=== PATIENT | female | born 1990 | race Caucasian/White ===

== ENCOUNTER → 2017-01-14 | Outpatient (CLI) | payer OTHER ==
[2017-01-14 12:35] LABS: BASO % 1 % (0-3); EOS % 1 % (0-3); HEMATOCRIT 40.2 % (36.0-47.0); HEMOGLOBIN 13.7 g/dL (12.0-15.5); LYMPH # 2.6 x10^3/uL (1.0-4.8); LYMPH % 36 % (24-48); MEAN CORPUSCULAR HEMOGLOBIN 30 pg (25-35); MEAN CORPUSCULAR HGB CONC 34 g/dL (31-37); MEAN CORPUSCULAR VOLUME 89 fL (79-100); MONO % 8 % (0-9); NEUT % 54 % (31-73); PLATELET COUNT 278 x10^3/uL (140-400); RED BLOOD COUNT 4.51 x10^6/uL (3.50-5.40); RED CELL DISTRIBUTION WIDTH 12.4 % (11.5-14.5); WHITE BLOOD COUNT 7.3 x10^3/uL (4.0-11.0)
[2017-01-14 12:49] LABS: ALBUMIN/GLOBULIN RATIO 1.1 (1.0-1.7); CHOLESTEROL/HDL RATIO 2.8; CREATININE 0.8 mg/dL (0.6-1.0); GFR 86.7; POTASSIUM 4.2 mmol/L (3.5-5.1); TOTAL BILIRUBIN 0.9 mg/dL (0.2-1.0); TOTAL PROTEIN 7.8 g/dL (6.4-8.2)
--- NOTE | 2017-01-14 14:55 | RAD ---
Left hand, 3 views, 01/14/2017: History: Pain No fracture or dislocation is identified. No significant arthritic change is seen. The soft tissues are unremarkable. IMPRESSION: No significant abnormality is detected.
== END | disposition home or self-care (01) ==
LOC: RAD 12:05
PROVIDERS: ATTEND Nurse Practitioner
DX: M79.642 Pain in left hand (principal); R00.2 Palpitations; Z82.49 Family history of ischemic heart disease and other diseases of the circulatory system
CPT/HCPCS: 36415; 73130; 80053; 80061; 82306; 84443; 85027

== ENCOUNTER → 2017-03-10 | Outpatient (CLI) | payer OTHER | END | disposition home or self-care (01) | LOC: LAB 11:55 | DX: N91.2 Amenorrhea, unspecified (principal) | CPT/HCPCS: 36415; 84702 ==

== ENCOUNTER → 2017-03-12 | Outpatient (CLI) | payer OTHER | END | disposition home or self-care (01) | LOC: LAB 09:34 | DX: N91.0 Primary amenorrhea (principal) | CPT/HCPCS: 36415; 84144; 84702; 86901 ==

== ENCOUNTER → 2017-03-16 | Outpatient (CLI) | payer OTHER | END | disposition home or self-care (01) | LOC: LAB 10:50 | DX: Z34.81 Encounter for supervision of other normal pregnancy, first trimester (principal); Z3A.01 Less than 8 weeks gestation of pregnancy | CPT/HCPCS: 36415; 84702 ==

== ENCOUNTER → 2017-03-25 | Outpatient (CLI) | payer OTHER ==
--- NOTE | 2017-03-25 09:09 | RAD ---
Indication assess viability. An early obstetrical ultrasound examination was performed. Initially transabdominal scans were obtained. Initial transabdominal scans were supplemented with transvaginal scans. No quantitative hCG value is available. The uterus measures approximately 8 x 5.2 x 4.2 cm. Within the fundus of the uterus is a gestational sac and a yolk sac. No pole is yet seen. Sac size is compatible with a of approximately 6 weeks gestational age. The right ovary appears normal. There is a dominant physiologic cyst measuring approximately 1.7 cm associated with the left ovary. IMPRESSION: Early IUP of approximately 6 weeks gestation. No pole has developed. Cardiac activity is not seen likely a function of the early gestational age Dominant cyst associated with the left ovary
== END | disposition home or self-care (01) ==
LOC: US 07:35
DX: O34.81 Maternal care for other abnormalities of pelvic organs, first trimester (principal); N83.202 Unspecified ovarian cyst, left side; Z3A.01 Less than 8 weeks gestation of pregnancy
CPT/HCPCS: 36415; 76801; 76817; 84702

== ENCOUNTER → 2017-04-07 | Outpatient (CLI) | payer OTHER ==
--- NOTE | 2017-04-07 16:42 | RAD ---
Obstetrical ultrasound, 04/03/2014 2017: History: Early Transabdominal scans were obtained. The uterus is enlarged and contains a single gestational sac. The gestational sac contains a pole demonstrating a crown-rump length of 1 cm. This suggests a gestational age of 7 weeks and 1 day yielding a sonographic EDC of 11/23/2017. motion and cardiac activity are present. The heart rate is 149 bpm. There is no evidence of subchorionic hemorrhage. The ovaries are of normal size. No adnexal mass is seen. No free fluid is evident in the pelvis. IMPRESSION: Single viable intrauterine fetus of 7 weeks gestational age as described above.
== END | disposition home or self-care (01) ==
LOC: US 16:02
DX: O26.891 Other specified pregnancy related conditions, first trimester (principal); N91.0 Primary amenorrhea; Z3A.01 Less than 8 weeks gestation of pregnancy
CPT/HCPCS: 76801

== ENCOUNTER → 2017-04-28 | Outpatient (CLI) | payer OTHER ==
[2017-04-28 11:05] LABS: BASO % 1 % (0-3); EOS % 1 % (0-3); HEMATOCRIT 38.8 % (36.0-47.0); HEMOGLOBIN 13.6 g/dL (12.0-15.5); LYMPH % 25 % (24-48); MEAN CORPUSCULAR HEMOGLOBIN 32 pg (25-35); MEAN CORPUSCULAR HGB CONC 35 g/dL (31-37); MEAN CORPUSCULAR VOLUME 90 fL (79-100); MONO % 7 % (0-9); NEUT % 67 % (31-73); PLATELET COUNT 258 x10^3/uL (140-400); RED BLOOD COUNT 4.32 x10^6/uL (3.50-5.40); RED CELL DISTRIBUTION WIDTH 12.4 % (11.5-14.5)
[2017-04-28 22:15] LABS: HIV ANTIBODY Non Reactive (Non Reactive)
== END | disposition home or self-care (01) ==
LOC: LAB 10:32
PROVIDERS: ATTEND Obstetrics & Gynecology
DX: Z32.01 Encounter for pregnancy test, result positive (principal)
CPT/HCPCS: 36415; 85025; 86593; 86701; 86702; 86703; 86762; 86850; 86900; 86901; 87340; 87341; 87535

== ENCOUNTER → 2017-05-12 | Outpatient (CLI) | payer OTHER | END | disposition home or self-care (01) | LOC: LAB 11:09 | PROVIDERS: ATTEND Obstetrics & Gynecology | DX: Z34.81 Encounter for supervision of other normal pregnancy, first trimester (principal); Z3A.00 Weeks of gestation of pregnancy not specified | CPT/HCPCS: 36415 ==

== ENCOUNTER → 2017-06-23 | Outpatient (CLI) | payer OTHER | END | disposition home or self-care (01) | LOC: US 09:27 | DX: O09.92 Supervision of high risk pregnancy, unspecified, second trimester (principal); O32.1XX0 Maternal care for breech presentation, not applicable or unspecified; O26.842 Uterine size-date discrepancy, second trimester; Z3A.19 19 weeks gestation of pregnancy | CPT/HCPCS: 76805 ==

== ENCOUNTER → 2017-07-20 | Outpatient (CLI) | payer OTHER ==
[2017-07-23 07:54] LABS: T-SPOT TB TEST(OXFORD) SEE SEPARATE REPORT
== END | disposition home or self-care (01) ==
LOC: LAB 09:49
DX: Z11.1 Encounter for screening for respiratory tuberculosis (principal)
CPT/HCPCS: 36415; 86481

== ENCOUNTER → 2017-09-03 | Outpatient (CLI) | payer OTHER ==
[2017-09-03 12:40] LABS: TYPE AND SCREEN 1 1
== END | disposition home or self-care (01) ==
LOC: LAB 10:13
DX: O09.93 Supervision of high risk pregnancy, unspecified, third trimester (principal); Z3A.40 40 weeks gestation of pregnancy
CPT/HCPCS: 36415; 86850; 86900; 86901; 96372; J2791

== ENCOUNTER 2017-11-11 13:57 | Observation (INO) | payer OTHER | END 2017-11-11 16:34 | disposition home or self-care (01) | LOC: 3 SO LND 13:57 | DX: O62.9 Abnormality of forces of labor, unspecified (principal); Z3A.38 38 weeks gestation of pregnancy | CPT/HCPCS: G0378; G0379 ==

== ENCOUNTER 2017-11-15 06:18 | Inpatient (IN) | payer OTHER ==
[2017-11-15] MEDS ORDERED: IV RINGERS,LACTATED 1000ML 1,000 ML IV (06:38)
[2017-11-15] MEDS ORDERED: IBUPROFEN 800 MG TABLET. PO (06:45)
[2017-11-15] MEDS ORDERED: fentaNYL PF VIAL 100 MCG/2 ML VIAL IV (06:45)
[2017-11-15] MEDS ORDERED: BUTORPHANOL 2 MG/ML VIAL. IV (06:45)
[2017-11-15] MEDS ORDERED: TERBUTALINE 1 MG/ML VIAL. SQ (06:45)
[2017-11-15] MEDS ORDERED: 0.9 % SODIUM CHLORIDE 10 ML DISP.SYRIN. IV ×2 (06:45→08:45)
[2017-11-15] MEDS ORDERED: LIDOCAINE 1% PF 30 ML VIAL. INJ (06:45)
[2017-11-15] MEDS: IV RINGERS,LACTATED 1000ML 1,000 ML IV ×2 (06:50→11:05)
[2017-11-15] MEDS: OXYTOCIN 30 UNIT/500 ML PREMIX 500 ML IV ×2 (06:51→11:04)
[2017-11-15] MEDS: BUTORPHANOL 2 MG/ML VIAL. IV (06:52)
[2017-11-15 06:56] LABS: ADD MAN DIFF? NO
[2017-11-15 07:02] LABS: BASO % 0 % (0-3); EOS # 0.1 x10^3/uL (0.0-0.7); EOS % 1 % (0-3); HEMATOCRIT 36.9 % (36.0-47.0); HEMOGLOBIN 12.5 g/dL (12.0-15.5); LYMPH # 2.3 x10^3/uL (1.0-4.8); LYMPH % 25 % (24-48); MEAN CORPUSCULAR HEMOGLOBIN 29 pg (25-35); MEAN CORPUSCULAR HGB CONC 34 g/dL (31-37); MEAN CORPUSCULAR VOLUME 85 fL (79-100); MONO # 0.7 x10^3/uL (0.0-1.1); MONO % 8 % (0-9); NEUT # 6.1 x10^3uL (1.8-7.7); NEUT % 66 % (31-73); PLATELET COUNT 208 x10^3/uL (140-400); RED BLOOD COUNT 4.33 x10^6/uL (3.50-5.40); RED CELL DISTRIBUTION WIDTH 13.8 % (11.5-14.5); WHITE BLOOD COUNT 9.2 x10^3/uL (4.0-11.0)
[2017-11-15] MEDS ORDERED: ROPIVacaine 0.2% IN 0.9%NACL PF 40 MG/20 ML DISP.SYRIN. ×2 (07:32→08:00)
[2017-11-15] MEDS ORDERED: L&D EPIDURAL SYRINGE 50 ML EP ×2 (07:33→11:18)
[2017-11-15] MEDS ORDERED: L&D EPIDURAL 50 ML SYRINGE. EP ×2 (08:00→11:30)
[2017-11-15] MEDS ORDERED: HYDROCORTISONE 1% TOPICAL OINTMENT 30GM TUBE. TP (08:45)
[2017-11-15] MEDS ORDERED: diphenhydrAMINE HCL 25 MG CAPSULE PO (08:45)
[2017-11-15] MEDS ORDERED: SIMETHICONE 80 MG TAB.CHEW PO (08:45)
[2017-11-15] MEDS ORDERED: PHENYLEPH/MINERAL OIL/PETROLAT RECTAL OINTMENT 28GM TUBE. RC (08:45)
[2017-11-15] MEDS ORDERED: MAG HYDROX/ALUMINUM HYD/SIMETH 30 ML ORAL.SUSP PO (08:45)
[2017-11-15] MEDS ORDERED: MAGNESIUM HYDROXIDE 2,400 MG/30 ML ORAL.SUSP. PO (08:45)
[2017-11-15] MEDS: IBUPROFEN 800 MG TABLET. PO ×2 (13:55→22:01)
[2017-11-15] MEDS: BENZOCAINE 20% TOPICAL AEROSOL SPRAY 57GM CAN. TP (13:56)
[2017-11-15] MEDS: FERROUS SULFATE 325 MG TABLET. PO (17:00)
[2017-11-15] MEDS: ACETAMINOPHEN 325 MG TABLET. PO (20:25)
[2017-11-16] MEDS: IBUPROFEN 800 MG TABLET. PO ×2 (07:47→17:43)
[2017-11-16 08:27] LABS: HEMATOCRIT 33.2 % (36.0-47.0)
[2017-11-16] MEDS: oxyCODONE/APAP 5/325 1 TAB TABLET PO ×2 (10:14→20:55)
[2017-11-16] MEDS: ZOLPIDEM 5 MG TABLET. PO (20:54)
[2017-11-16] MEDS: DOCUSATE SODIUM 100 MG CAPSULE. PO (20:54)
[2017-11-17 07:41] LABS: RPR Non Reactive (Non Reactive)
[2017-11-17] MEDS: IBUPROFEN 800 MG TABLET. PO (08:30)
[2017-11-17] MEDS: DOCUSATE SODIUM 100 MG CAPSULE. PO (08:30)
== END 2017-11-17 14:58 | disposition home or self-care (01) | DRG 775 ==
LOC: 3 SO LND 06:18
PROC: 10E0XZZ Delivery of Products of Conception, External Approach (ICD-10-PCS; principal; 2017-11-15)
PROC: 00HU33Z Insertion of Infusion Device into Spinal Canal, Percutaneous Approach (ICD-10-PCS; 2017-11-15)
PROC: 3E0R3BZ Introduction of Anesthetic Agent into Spinal Canal, Percutaneous Approach (ICD-10-PCS; 2017-11-15)
DX: O80 Encounter for full-term uncomplicated delivery (principal); Z37.0 Single live birth; Z3A.00 Weeks of gestation of pregnancy not specified
CPT/HCPCS: 36415; 85014; 85025; 86593; 86850; 86900; 86901; J2590; J2795; J7120